=== PATIENT | male | born 1970 | race Caucasian/White ===

== ENCOUNTER → 2017-02-21 | Outpatient (CLI) | payer OTHER ==
--- NOTE | 2017-02-21 11:18 | CT ---
EXAMINATION TYPE: CT lumbar spine wo con DATE OF EXAM: 02/21/2017 COMPARISON: NONE HISTORY: Fusion 9 months ago, bilateral leg weakness. CT DLP: 611 mGycm Automated exposure control for dose reduction was used. FINDINGS: There are 5 lumbar type vertebra identified. There is postsurgical change L5-S1 level with artificial metallic disc material and posterior interpedicular rods and screws bilaterally radiology. Vertebral body heights are maintained. There is moderate disc space narrowing with vacuum disc phenomenon L4-L 5 level. There is mild to moderate multilevel anterior spurring in the lower thoracic and upper lumba r spine. Spinal canal is grossly preserved. Review of axial images shows a T12-L1, L1-L2, and L2-L3 levels to appear within normal limits. Axial images at L3-L4 level show mild right greater than left facet degenerative changes. Spinal kallie l is preserved and bilateral neural foramina are patent. Axial images at L4-L5 level show artifact from posterior fusion hardware. There are mild to moderate facet degenerative changes felt present bilaterally. There is eccentric broad-based right paracentral disc protrusion on axial image 66 slightly effacing anterolateral thecal sac. There is asymmetric mi ld to moderate right-sided neural foraminal narrowing. Left-sided neural foramen is patent. Axial images at L5-S1 level show artifact from disc material and posterior fusion hardware. Spinal ca nal is grossly preserved. There is left-sided neural foraminal narrowing due to marginal spurring see n best on sagittal image 26. Normal-appearing appendix is seen from cecum. There is mild atherosclerotic change in visualized aort ic extending into iliac branch vessels. There is subcentimeter low dense exophytic lesion posterior l aterally lower pole level right kidney too small to further characterize on coronal image 13. IMPRESSION: POSTSURGICAL CHANGE L5-S1 LEVEL. ECCENTRIC DISC HERNIATION L4-L5 LEVEL NOTED. OTHER DEGENERATIVE FIND INGS DETAILED ABOVE.
== END | disposition home or self-care (01) ==
LOC: RADCTMAIN 09:52
PROVIDERS: ATTEND Orthopaedic Surgery Orthopaedic Surgery of the Spine
DX: Z47.89 Encounter for other orthopedic aftercare (principal); M51.26 Other intervertebral disc displacement, lumbar region; Z98.890 Other specified postprocedural states
CPT/HCPCS: 72131

== ENCOUNTER 2017-10-12 17:20 | Emergency (ER) | payer OTHER ==
[2017-10-12] MEDS ORDERED: KETOROLAC 30 MG/ML 1 ML VIAL IVP STA (17:39)
[2017-10-12] MEDS ORDERED: METOCLOPRAMIDE 5 MG/ML 2 ML VIAL IVP STA (17:39)
[2017-10-12] MEDS ORDERED: diphenhydrAMINE 50 MG/ML 1 ML VIAL IVP STA (17:39)
[2017-10-12] MEDS ORDERED: SODIUM CHLORIDE 0.9% 1,000 ML IV ONE (17:39)
--- NOTE | 2017-10-12 17:43 | ED ---
Headache HPI - General Chief Complaint: Headache Stated Complaint: Headache Time Seen by Provider: 10/12/17 17:31 Mode of arrival: ambulatory Limitations: no limitations - History of Present Illness Initial Comments: 47-year-old male patient presents to the emergency department today for evaluation of migraine headache. Patient states that pain started yesterday, did improve somewhat overnight and then woke him from sleep again this morning. States the pain has never completely resolved. Patient states that he has had similar headaches in the past, especially during the summer months when his ALLERGIES bother him. Patient states that the headache is in the frontal region. States he has had nasal congestion as well. Denies any blurred or double vision. Denies any numbness, tingling, dizziness, or weakness. States he is slightly sensitive to light. States sound does not bother him. Denies any nausea or vomiting. He states that he has tried Mucinex, cold medicine, and headache relief medication however has not helped. He does have a history of hypertension, states he has taken his medication today. Patient denies any recent rash, fever, chills, shortness breath, chest pain, abdominal pain, diarrhea, constipation, back pain, hematuria, dysuria, urinary urgency, urinary frequency, or any other complaints. - Related Data Home Medications Medication Instructions Recorded Confirmed Hydrocodone/Acetaminophen 1 tab PO Q4-6H PRN 07/07/15 10/12/17 [Hydrocodone/Acetaminophen 10-300] Losartan/Hydrochlorothiazide 1 tab PO DAILY 10/12/17 10/12/17 [Hyzaar 100-25 Tablet] amLODIPine [Norvasc] 5 mg PO DAILY 10/12/17 10/12/17 [id number] 600/30MG [Mucinex 2 tab PO Q12HR 10/12/17 10/12/17 Dm] Allergies Allergy/AdvReac Type Severity Reaction Status Date / Time No Known Allergies Allergy Verified 10/12/17 17:47 Review of Systems ROS Statement: Those systems with pertinent positive or pertinent negative responses have been documented in the HPI. ROS Other: All systems not noted in ROS Statement are negative. Past Medical History Past Medical History: Hypertension Additional Past Medical History / Comment(s): migraine, blood in urine History of Any Multi-Drug Resistant Organisms: None Reported Past Surgical History: Back Surgery, Hernia Repair, Orthopedic Surgery Additional Past Surgical History / Comment(s): umbilical hernia repair, lt rotator cuff repair Past Anesthesia/Blood Transfusion Reactions: No Reported Reaction Past Psychological History: No Psychological Hx Reported Smoking Status: Current every day smoker Past Alcohol Use History: None Reported Past Drug Use History: None Reported - Past Family History Mother Family Medical History: Cancer General Exam Limitations: no limitations General appearance: alert, in no apparent distress, other (Physical well- developed, well-nourished adult male patient in no acute distress. Vital signs upon presentation are temperature 97.5F, pulse 98, respirations 18, blood pressure 157/100, pulse ox 97% on room air.) Head exam: Present: atraumatic, normocephalic, normal inspection Eye exam: Present: normal appearance, PERRL, EOMI. Absent: scleral icterus, conjunctival injection, periorbital swelling ENT exam: Present: normal exam, normal oropharynx, mucous membranes moist Neck exam: Present: normal inspection, full ROM. Absent: tenderness, meningismus, lymphadenopathy Respiratory exam: Present: normal lung sounds bilaterally. Absent: respiratory distress, wheezes, rales, rhonchi, stridor Cardiovascular Exam: Present: regular rate, normal rhythm, normal heart sounds. Absent: systolic murmur, diastolic murmur, rubs, gallop, clicks GI/Abdominal exam: Present: soft, normal bowel sounds. Absent: distended, tenderness, guarding, rebound, rigid Neurological exam: Present: alert, oriented X3, CN II-XII intact, other ( Strength in all 4 extremities is 5/5.) Psychiatric exam: Present: normal affect, normal mood Skin exam: Present: warm, dry, intact, normal color. Absent: rash Course Vital Signs 10/12/17 10/12/17 17:28 19:04 Temperature 97.5 F L 97.7 F Pulse Rate 98 77 Respiratory 18 16 Rate Blood Pressure 157/100 158/97 O2 Sat by Pulse 97 95 Oximetry Medical Decision Making - Medical Decision Making 47-year-old male patient presented to the emergency department today for evaluation of frontal headache. Physical examination is unremarkable. Patient is neurologically intact. Patient does have history of similar headache. Patient was given IV Reglan, Toradol, and normal saline. Patient states his did improve his symptoms somewhat but his pain is still rated at a 8 out of 10 on the pain scale. He did receive a dose of morphine. Upon reevaluation patient states that his symptoms have completely resolved. He is feeling much better. He'll be discharged home to follow-up with his primary care physician. We did discuss use of Claritin-D to relieve ALLERGY symptoms and nasal congestion. He is instructed to return here immediately for any new, worsening , or concerning symptoms. Return parameters discussed in detail. He verbalizes understanding and agrees this plan. Disposition Clinical Impression: Migraine headache Disposition: HOME SELF-CARE Condition: Good Instructions: Acute Headache (ED) Additional Instructions: Continue using ALLERGY medication. Consider using ALLERGY nasal spray. Return here immediately if headache returns, or if you develop any new, worsening, or concerning symptoms. Follow-up with her primary care physician for recheck in 1 -2 days. Is patient prescribed a controlled substance at d/c from ED?: No Referrals: Ivan Thibodeaux MD [Primary Care Provider] - 1-2 days Time of Disposition: 19:36
[2017-10-12] MEDS ORDERED: MORPHINE SULFATE 2 MG/ML SYRINGE IVP STA (18:54)
[2017-10-12 19:05] VITALS: BP 158/97; PULSE 77; RESP 16; TEMP 97.7
== END 2017-10-12 19:47 | disposition home or self-care (01) ==
LOC: EC 17:20
DX: G43.909 Migraine, unspecified, not intractable, without status migrainosus (principal); R09.81 Nasal congestion; I10 Essential (primary) hypertension; F17.200 Nicotine dependence, unspecified, uncomplicated; Z79.899 Other long term (current) drug therapy
CPT/HCPCS: 99283; 96374; 96375 ×3; 96361; J1200; J2765; J1885; J2270